=== PATIENT | female | born 1995 | race Caucasian/White ===

== ENCOUNTER → 2016-03-20 | Outpatient (CLI) | payer MEDICAID, OTHER ==
--- NOTE | 2016-03-20 09:56 | REP ---
OB ULTRASOUND: Real-time sonographic evaluation of the gravid uterus performed. There is a single living intrauterine gestation. Estimated gestational age 19 weeks with EDC 08/14/2016. Today's measurements indicate appropriate growth. BPD 42 mm 18 weeks 5 days, 43rd percentile HC 166 mm 19 weeks 2 days, 58th percentile AC 132 mm 18 weeks 5 days, 44th percentile FL 29 mm 18 weeks 5 days, 44th percentile HC/AC ratio 1.25 upper limits of normal range 1.06 - 1.25. Estimated weight 258 grams, 40th percentile. Cervix is closed and measures 4.8 cm in length. heart rate 152 beats per minute. SEEN/GROSSLY UNREMARKABLE Lateral ventricles Yes Posterior fossa Yes Upper lip No Four-chamber heart No LVOT No RVOT No Stomach Yes Cord insertion Yes Three vessel cord Yes Kidneys No Bladder Yes Spine No position transverse with head toward the maternal right side. Placenta is anterior and grade 0 with no previa or abruption. Amniotic fluid within normal limits. Signed by Milton Patel MD 03/20/2016 02:32 P
== END ==
LOC: M RAD 07:24
PROVIDERS: ATTEND Obstetrics & Gynecology
DX: Z34.82 Encounter for supervision of other normal pregnancy, second trimester (principal); Z3A.19 19 weeks gestation of pregnancy

== ENCOUNTER → 2016-04-16 | Outpatient (CLI) | payer OTHER, MEDICAID ==
--- NOTE | 2016-04-16 10:06 | REP ---
OBSTETRIC SONOGRAPHY: HISTORY: Supervision of followup anatomy. Comparison sonography March 20, 2016. FINDINGS: Scanning through the gravid uterus demonstrates a viable single intrauterine gestation in a cephalic lie. motion is observed and heart rate is recorded 147 beats per minute. Anterior grade 0 placenta is seen without evidence of previa or abruption. Amniotic fluid is subjectively normal. Closed cervical length is 3.3 cm measured transabdominally. No extrauterine abnormality is observed. There has been appropriate interval growth since the prior study. No anomaly is seen. The following anatomic structures are identified and felt to be sonographically unremarkable: cranium, choroid plexus, cavum, cerebellum and posterior fossa, face and profile, lungs, four-chamber heart with left and right ventricular outflow tract views, diaphragm, left-sided stomach, abdominal wall cord insertion, three-vessel umbilical cord, kidneys and bladder, spine, upper lower extremities. Biometry Chart: BPD 5.6 cm = 23 weeks 1 day HC 20.5 cm = 22 weeks 4 days AC ____.7 = 23 weeks 3 days FL 4.3 cm = 23 weeks 6 days HL 4.0 cm = 24 weeks 1 day CD 2.5 cm = 23 weeks 0 days HC/AC ratio normal 1.1. Cephalic index normal 0.77. Estimated weight 602 grams, 1 pound 5 ounces, 64th percentile for 22 weeks 6 days. IMPRESSION: Viable single intrauterine gestation of 23 weeks 0 days by today's composite sonographic criteria. Expected gestational age estimate based on prior sonography is 22 weeks 6 days. AUBREY by prior sonography August 14, 2016. There is appropriate interval growth. anatomic survey is felt to be complete. Signed by Renny Boswell MD 04/16/2016 02:47 P
== END ==
LOC: M SMT 08:06
PROVIDERS: ATTEND Obstetrics & Gynecology
DX: Z36 Encounter for antenatal screening of mother (principal); Z3A.23 23 weeks gestation of pregnancy

== ENCOUNTER → 2016-05-03 | Outpatient (CLI) | payer OTHER, MEDICAID ==
[2016-05-03 18:58] LABS: BASO % 0.1 % (0.0-1.0); EOS # 0.1 K/mm3 (0.0-0.50); EOS % 1.8 % (0.0-3.0); LARGE UNSTAINED CELL # 0.1 K/mm3 (0.0-0.4); LARGE UNSTAINED CELL % 1.2 % (0.0-4.0); LYMPH # 1.1 K/mm3 (1.5-6.5); LYMPH % 14.7 % (24.0-44.0); MEAN CORPUSCULAR HGB CONC 32.9 g/dl (32.0-36.5); MEAN CORPUSCULAR VOLUME 91.3 fl (80.0-96.0); MONO # 0.4 K/mm3 (0.0-0.8); MONO % 4.8 % (0.0-5.0); NEUTROPHILS # 5.7 K/mm3 (1.8-7.7); NEUTROPHILS % 77.4 % (36.0-66.0); PLATELET COUNT, AUTOMATED 230 k/mm3 (150-450); RED CELL DISTRIBUTION WIDTH 13.4 % (11.5-14.5); WHITE BLOOD COUNT 7.4 K/mm3 (4.0-10.0)
== END ==
LOC: M WUC 09:06
PROVIDERS: ATTEND Obstetrics & Gynecology
DX: Z34.83 Encounter for supervision of other normal pregnancy, third trimester (principal)

== ENCOUNTER → 2016-06-25 | Outpatient (REF) | payer OTHER, MEDICAID | LOC: M LAB REF 12:58 | PROVIDERS: ATTEND Advanced Practice Midwife | DX: O34.211 Maternal care for low transverse scar from previous cesarean delivery (principal); Z3A.00 Weeks of gestation of pregnancy not specified ==

== ENCOUNTER 2016-07-03 09:21 | Outpatient (CLI) | payer OTHER, MEDICAID ==
[~2016-07-03] VITALS: Ht 162.6 cm; Wt 95.0 kg
[2016-07-03 09:44] VITALS: BP 132/80
== END 2016-07-03 11:00 | disposition home or self-care (01) ==
LOC: M LDO 09:21
PROVIDERS: ATTEND Specialist
DX: O26.893 Other specified pregnancy related conditions, third trimester (principal); Z3A.34 34 weeks gestation of pregnancy; R42 Dizziness and giddiness

== ENCOUNTER → 2016-07-22 | Outpatient (REF) | payer OTHER, MEDICAID | LOC: M LAB REF 09:52 | PROVIDERS: ATTEND Obstetrics & Gynecology | DX: Z34.83 Encounter for supervision of other normal pregnancy, third trimester (principal) ==

== ENCOUNTER 2016-08-04 23:15 | Outpatient (CLI) | payer OTHER, MEDICAID ==
[~2016-08-04] VITALS: Ht 162.6 cm; Wt 95.0 kg
[2016-08-04 23:23] VITALS: BP 123/80
[2016-08-05] MEDS ORDERED: LACTATED RINGER'S 1000 ML IV ONE
[2016-08-05 00:18] LABS: MEAN CORPUSCULAR HEMOGLOBIN 29.6 pg (27.0-33.0); MEAN CORPUSCULAR HGB CONC 34.1 g/dl (32.0-36.5); MEAN CORPUSCULAR VOLUME 86.7 fl (80.0-96.0); RED CELL DISTRIBUTION WIDTH 13.5 % (11.5-14.5); WHITE BLOOD COUNT 11.5 K/mm3 (4.0-10.0)
[2016-08-05 01:08] VITALS: BP 112/71
== END 2016-08-05 03:11 | disposition home or self-care (01) ==
LOC: M LDO 23:15
PROVIDERS: ATTEND Advanced Practice Midwife
DX: O47.1 False labor at or after 37 completed weeks of gestation (principal); Z3A.38 38 weeks gestation of pregnancy

== ENCOUNTER 2016-08-07 06:34 | Inpatient (IN) | payer OTHER ==
[~2016-08-07] VITALS: Ht 162.6 cm; Wt 96.0 kg
[2016-08-07] VITALS (7 sets, daily range): BP systolic 115–132; BP diastolic 66–83
[2016-08-07] MEDS ORDERED: LR 1,000 ML IV SCH (06:45)
[2016-08-07] MEDS ORDERED: BICITRA 30ML SOLN UDC PO ONE (06:45)
[2016-08-07] MEDS ORDERED: LR 1,000 ML IV ONE (06:45)
[2016-08-07 07:36] LABS: MEAN CORPUSCULAR HEMOGLOBIN 29.3 pg (27.0-33.0); MEAN CORPUSCULAR HGB CONC 33.8 g/dl (32.0-36.5); MEAN CORPUSCULAR VOLUME 86.5 fl (80.0-96.0); RED CELL DISTRIBUTION WIDTH 13.3 % (11.5-14.5); WHITE BLOOD COUNT 7.4 K/mm3 (4.0-10.0)
[2016-08-07] MEDS ORDERED: OXYTOCIN INJ 10 UNITS/ML VIAL (J2590) As Ordered ONE (08:12)
[2016-08-07] MEDS ORDERED: MORPHINE PRES-FREE INJ 10 MG/10 ML VIAL (J2274) As Ordered ONE (08:12)
[2016-08-07] MEDS ORDERED: IBUP800T23 PO (08:43)
[2016-08-07] MEDS ORDERED: METOCLOPRAMIDE INJ 10MG/2ML VIAL (J2765) IV PRN (08:44)
[2016-08-07] MEDS ORDERED: ONDANSETRON 4MG/2ML VIAL (J2405) IV PRN ×3 (08:44→10:15)
[2016-08-07] MEDS ORDERED: PERCOCET PO (08:44)
[2016-08-07] MEDS ORDERED: NALOXONE INJ 0.4 MG/1 ML VIAL (J2310) IV PRN ×2 (08:44)
[2016-08-07] MEDS ORDERED: ePHEDrine SULFATE 25 MG/5 ML(5MG/ML) SYRINGE As Ordered ONE (08:45)
[2016-08-07] MEDS ORDERED: PHENYLephrine HCL 500 MCG/5 ML (100MCG/ML) SYRINGE (J2370) As Ordered ONE (09:02)
[2016-08-07] MEDS ORDERED: PERCOCET 5MG/325MG TAB PO PRN (09:45)
[2016-08-07] MEDS ORDERED: RHOGAM 300 MCG (1500 IU) INJ (J2790) IM SCH (09:45)
[2016-08-07] MEDS ORDERED: OXYTOCIN DRIP 30 UNITS in APPROPRIATE DILUENT 1 EA IV ONE (09:45)
[2016-08-07] MEDS ORDERED: MEASLES,MUMPS,RUBELLA VACCINE INJ (MMR-II) (90707) SC SCH (09:45)
[2016-08-07] MEDS: KETOROLAC 30 MG/ML VIAL (J1885) IV SCH ×3 (10:00→22:21)
[2016-08-07] MEDS ORDERED: NALBUPHINE HCL 10 MG/ML AMP (J2300) IV PRN (10:15)
[2016-08-07] MEDS ORDERED: fentaNYL 100 MCG/2 ML INJECTION (J3010) IV PRN (10:15)
[2016-08-07] MEDS ORDERED: KETOROLAC 30 MG/ML VIAL (J1885) IV PRN (10:15)
[2016-08-07] MEDS ORDERED: MEPERIDINE INJ 25 MG/ML VIAL (J2175) IV PRN (10:15)
--- NOTE | 2016-08-07 10:39 | RO ---
DATE OF OPERATION: 08/07/2016 PREPROCEDURE DIAGNOSIS: Elective repeat section at 39 weeks estimated gestational age. POSTPROCEDURE DIAGNOSIS: Elective repeat section at 39 weeks estimated gestational age. PROCEDURE: Repeat section. SURGEON: Alva Calderon MD INSURANCE PLAN SPECIALIST: Jonel Smart MD ANESTHESIA: Spinal. ESTIMATED BLOOD LOSS: 500 mL. URINE OUTPUT: 150 mL. INTRAVENOUS FLUIDS: 1500 mL of lactated ringer's solution. PREOPERATIVE ANTIBIOTICS: 2 grams of Ancef. OPERATIVE FINDINGS: Live born male infant. scores 8 and 9. Weight was 3646 grams, 8 pounds 1 oz. SPECIMENS: Cord blood. DESCRIPTION OF OPERATION: After informed consent was obtained and written content was reviewed, the patient was brought to the operating room where spinal anesthesia was obtained. She was then placed in the lithotomy position with a left lateral tilt. A Mcgregor catheter was placed and set to gravity. She was then prepped and draped in a normal sterile fashion. A time-out in the operating room was then performed, identifying the patient, procedure to be performed as well as drug allergies. Anesthesia was tested and was deemed to be inadequate. A Pfannenstiel skin incision was then made along the previous skin incision and carried down to the underlying rectus fascia. The fascia was scored and this incision was extended bilaterally. The fascia was then dissected off the underlying rectus muscles both superiorly and inferior. The rectus muscles were in the midline. The peritoneum was then entered sharply. The vesicouterine peritoneum was then identified. It was tented and excised to create a bladder flap. The bladder blade was then placed to retract back the bladder. A curvilinear incision was then made in the lower uterine segment. Amniotomy was then performed, productive clear fluid, the head was brought to the level of the incision atraumatically followed by delivery of shoulder and his cord was clamped times two and was cut. The was brought over to the warmer with a good cry. Cord blood was then obtained. Placenta was drained and delivered grossly intact. The uterus was then exteriorized and cleared of all clots and debris. The uterine incision was then closed in two layers using #0 Vicryl, first in a running locking fashion followed by a second layer of imbrication in a running nonlocking fashion. A [id number] stitch was placed for hemostasis. The abdomen was suctioned. The uterus was returned and the patient's abdomen and once again noted to be hemostatic. The anterior peritoneum was then reapproximated with #3-0 Vicryl. The rectus muscles were reapproximated with #3-0 Vicryl. The fascia was then closed with #0 Vicryl in a running nonlocking fashion. The subcutaneous tissue was then irrigated and suctioned. The subcutaneous tissue was then reapproximated with #3-0 Vicryl. Several subdermal stitches were placed with #3-0 Vicryl and the skin was closed with #4-0 Monocryl in a subcuticular fashion. Incision was then cleaned and dried. Mastisol was applied above and below the incision. Steri-Strips were applied over the incision. The incision was dressed. The patient was then taken to recovery in stable condition. Counts were correct.
[2016-08-07] MEDS: NALBUPHINE HCL 10 MG/ML AMP (J2300) IV PRN ×2 (12:22→20:19)
[2016-08-07] MEDS: LR 1,000 ML IV SCH (20:00)
[2016-08-08 02:13] VITALS: BP 130/67
[2016-08-08] MEDS: KETOROLAC 30 MG/ML VIAL (J1885) IV SCH (04:18)
[2016-08-08] MEDS: LR 1,000 ML IV SCH ×2 (04:44→09:34)
[2016-08-08 05:55] VITALS: BP 117/61
[2016-08-08 07:12] LABS: MEAN CORPUSCULAR HEMOGLOBIN 29.8 pg (27.0-33.0); MEAN CORPUSCULAR HGB CONC 34.2 g/dl (32.0-36.5); MEAN CORPUSCULAR VOLUME 87.3 fl (80.0-96.0); RED CELL DISTRIBUTION WIDTH 13.6 % (11.5-14.5); WHITE BLOOD COUNT 11.9 K/mm3 (4.0-10.0)
[2016-08-08] MEDS: PERCOCET 5MG/325MG TAB PO PRN ×3 (08:30→21:24)
[2016-08-08] MEDS ORDERED: PRENATAL VITAMIN TAB PO SCH (09:00)
[2016-08-08 10:00] VITALS: BP 130/74
[2016-08-08] MEDS: IBUPROFEN 800 MG TAB PO SCH ×2 (12:39→19:58)
[2016-08-08 14:00] VITALS: BP 141/86
[2016-08-08 18:00] VITALS: BP 124/70
[2016-08-08 21:50] VITALS: BP 139/72
[2016-08-09] MEDS: IBUPROFEN 800 MG TAB PO SCH ×2 (03:57→11:42)
[2016-08-09 05:38] VITALS: BP 132/70
[2016-08-09] MEDS ORDERED: PRENTAB9 PO (08:52)
[2016-08-09] MEDS ORDERED: PRENATAL VITAMINS CHEWABLE TABLET PO SCH (09:00)
--- NOTE | 2016-08-09 17:42 | DSES ---
DATE OF ADMISSION: 08/07/2016 DATE OF DISCHARGE: 08/09/2016 FINAL DIAGNOSIS: Term for elective repeat section. PROCEDURE DONE DURING THIS ADMISSION: Repeat section. CONDITION UPON DISCHARGE: Stable. DISCHARGE INSTRUCTIONS: The patient is instructed to call if there is any severe bleeding, pain or temperature greater than 101. She is given a prescription for Percocet as needed for pain. BRIEF HISTORY: Dk is a 20-year-old female with a prior history of section, was admitted on the 08/07/2016 for an elective repeat section. She underwent the above-noted procedure, was then transferred to [facility] for postoperative care. Postoperatively, she did well, remained afebrile all throughout her hospital stay. On postoperative day number one, her hemoglobin and hematocrit (H and H) was 10.6/31 and on postoperative day number two, she was found to be in stable condition. At this point, she was discharged home to follow up in approximately two weeks for an incision check. She will follow up with [facility].
== END 2016-08-09 14:49 | disposition home or self-care (01) | DRG 540 ==
LOC: M OBS 06:34
PROVIDERS: ADMIT Obstetrics & Gynecology; ATTEND Obstetrics & Gynecology
PROC: 10D00Z1 Extraction of Products of Conception, Low, Open Approach (ICD-10-PCS; principal; 2016-08-07 08:30)
DX: O34.211 Maternal care for low transverse scar from previous cesarean delivery (principal); Z37.0 Single live birth; Z3A.39 39 weeks gestation of pregnancy

== ENCOUNTER 2017-02-05 15:49 | Emergency (ER) | payer OTHER ==
[2017-02-05] MEDS: ADACEL/BOOSTRIX VACCINE (DIPHTH/PERTUSS/ACELL/TETANUS)0.5ML SYR (90715) IM ×2 (16:45)
[2017-02-05 17:03] LABS: BASO % 0.2 % (0.0-1.0); EOS # 0.2 10^3/uL (0.0-0.50); EOS % 2.4 % (0.0-3.0); IMMATURE GRANULOCYTE % 0.1 % (0-0); LYMPH # 2.8 10^3/uL (1.5-6.5); LYMPH % 32.9 % (24.0-44.0); MEAN CORPUSCULAR HEMOGLOBIN 26.6 pg (27.0-33.0); MEAN CORPUSCULAR HGB CONC 32.2 g/dl (32.0-36.5); MEAN CORPUSCULAR VOLUME 82.4 fl (80.0-96.0); MONO # 0.4 10^3/uL (0.0-0.8); MONO % 4.5 % (0.0-5.0); NEUTROPHILS # 5.1 10^3/uL (1.8-7.7); NEUTROPHILS % 59.9 % (36.0-66.0); PLATELET COUNT, AUTOMATED 379 10^3/uL (150-450); RED CELL DISTRIBUTION WIDTH 14.2 % (11.5-14.5); WHITE BLOOD COUNT 8.5 10^3/uL (4.0-10.0)
[2017-02-05 17:24] LABS: CONTROL LINE HCG INT CTR LINE PRESENT
[2017-02-05 17:25] LABS: ALBUMIN/GLOBULIN RATIO 0.93 (1.00-1.93); ALKALINE PHOSPHATASE 61 U/L (45-117); ALT/SGPT 20 U/L (12-78); ANION GAP 7 MEQ/L (8-16); AST/SGOT 12 U/L (7-37); BILIRUBIN,TOTAL 0.2 MG/DL (0.2-1.0); BLOOD UREA NITROGEN 13 MG/DL (7-18); CARBON DIOXIDE LEVEL 26 MEQ/L (21-32); CHLORIDE LEVEL 105 MEQ/L (98-107); CREATININE FOR GFR 0.77 MG/DL (0.55-1.02); GLOMERULAR FILTRATION RATE > 60.0 (>60); GLUCOSE, FASTING 88 MG/DL (70-105); POTASSIUM SERUM 3.7 MEQ/L (3.5-5.1); SODIUM LEVEL 138 MEQ/L (136-145); TOTAL PROTEIN 8.3 GM/DL (6.4-8.2)
[2017-02-05 18:05] LABS: CONTROL LINE INT CTR LINE PRESENT
[2017-02-05] MEDS: EXPOSURE KIT-ADULT 7 DAY SUPPLY PO ×2 (18:06)
[2017-02-05] MEDS: [UNRECOGNIZED DRUG - OTHER] IM ×2 (18:06)
[2017-02-06 09:42] LABS: HEPATITIS B SURFACE ANTIBODY NEGATIVE (POSITIVE)
== END 2017-02-05 18:16 | disposition home or self-care (01) ==
LOC: M ED 15:49
DX: S51.852A Open bite of left forearm, initial encounter (principal); W50.3XXA Accidental bite by another person, initial encounter; Y92.89 Other specified places as the place of occurrence of the external cause; Y93.89 Activity, other specified; Y99.0 Civilian activity done for income or pay; Z77.21 Contact with and (suspected) exposure to potentially hazardous body fluids; Z79.899 Other long term (current) drug therapy; F17.210 Nicotine dependence, cigarettes, uncomplicated
CPT/HCPCS: 90715

== ENCOUNTER 2017-09-10 12:18 | Emergency (ER) | payer OTHER ==
[2017-09-10] MEDS: LIDOCAINE 2% W/EPIN INJ 20ML **PRES FREE INJ (14:45)
== END 2017-09-10 15:32 | disposition home or self-care (01) ==
LOC: M ED 12:18
DX: L05.01 Pilonidal cyst with abscess (principal); F17.210 Nicotine dependence, cigarettes, uncomplicated
CPT/HCPCS: 87186